=== PATIENT | male | born 1955 | race African-American/Black ===

== ENCOUNTER 2021-08-07 12:28 | Emergency (ER) | payer SELFPAY ==
[~2021-08-07] VITALS: Ht 188 cm; Wt 101.0 kg
[2021-08-07] MEDS ORDERED: HYDROCODONE/ACETAMINOPHEN 10/325MG TABLET PO ONE (13:15)
[2021-08-07] MEDS ORDERED: IBUPROFEN 800MG TABLET PO ONE (15:00)
[2021-08-07 15:20] VITALS: BP 158/78
== END 2021-08-07 17:51 | disposition home or self-care (01) ==
LOC: ER 12:45
DX: S82.299 Other fracture of shaft of unspecified tibia (principal); I10 Essential (primary) hypertension; X58.XXXA Exposure to other specified factors, initial encounter; Y93.9 Activity, unspecified; Y92.9 Unspecified place or not applicable
CPT/HCPCS: 29505; 99283

== ENCOUNTER 2021-09-28 10:42 | Emergency (ER) | payer MEDICAID ==
[~2021-09-28] VITALS: Ht 167.6 cm; Wt 100.0 kg
[2021-09-28 10:50] VITALS: BP 135/83
[2021-09-28 12:08] LABS: BASOPHILS % 0.6 % (0.0-2.0); EOSINOPHILS % 0.9 % (0.0-5.0); HEMATOCRIT. 40.6 % (42.0-52.0); HEMOGLOBIN. 13.3 g/dL (14.0-18.0); LYMPHOCYTES % 28.1 % (20.0-50.0); MEAN CORPUSCULAR HEMOGLOBIN 26.7 pg (28.0-32.0); MEAN CORPUSCULAR VOLUME 81.6 fL (80.0-94.0); MEAN PLATELET VOLUME 6.8 fl (7.4-10.4); MONOCYTES % 14.9 % (2.0-8.0); NEUTROPHILS % 55.5 % (40.0-76.0); PLATELET 423 x1000/uL (130-400); RED BLOOD CELL COUNT 4.98 mill/uL (4.7-6.1); RED CELL DISTRIBUTION WIDTH 14.8 % (11.6-14.6)
[2021-09-28 12:10] LABS: CHLORIDE 98 mEq/L (98-107)
[2021-09-28] MEDS ORDERED: PIPERACILLIN/TAZ 3.375G PREMIX 50 ML IV ONE (13:15)
[2021-09-28] MEDS ORDERED: VANCOMYCIN 1G PREMIX 200 ML IV ONE (13:15)
[2021-09-28 16:22] LABS: CLARITY URINE CLEAR (CLEAR); COLOR URINE YELLOW (YELLOW); KETONES URINE NEGATIVE (NEGATIVE); LEUKOCYTE ESTERASE URINE NEGATIVE (NEGATIVE); NITRITE URINE NEGATIVE (NEGATIVE); OCCULT BLOOD URINE NEGATIVE (NEGATIVE); PROTEIN URINE NEGATIVE (NEGATIVE); UROBILINOGEN URINE 0.2 E.U./dL (0.2-1.0)
[2021-09-28] MEDS ORDERED: GUAIFENESIN 200MG/10ML SUGAR FREE UDC PO PRN (17:30)
[2021-09-28] MEDS ORDERED: ONDANSETRON HCL 4MG/2ML INJ IV PRN (17:30)
[2021-09-28] MEDS ORDERED: DOCUSATE SODIUM 100MG CAPSULE PO PRN (17:30)
[2021-09-28] MEDS ORDERED: PIPERACILLIN/TAZOBACTAM 3.375 G in DEXTROSE 5% WATER 50 ML IV SCH (17:30)
[2021-09-28] MEDS ORDERED: ACETAMINOPHEN 325MG TABLET PO PRN (17:30)
[2021-09-28] MEDS ORDERED: HYDROCODONE/APAP 7.5/325MG 1 TAB TABLET PO PRN (17:30)
[2021-09-28] MEDS ORDERED: PIPERACILLIN/TAZOBACTAM 3.375G in DEXT 5% WATER 50ML IV SCH (23:00)
[2021-09-29] MEDS ORDERED: VANCOMYCIN 750 MG in DEXT 5% WATER 250 ML IV SCH (02:00)
[2021-09-29] MEDS ORDERED: MULTIVITAMINS,THER W-MINERALS TABLET PO SCH (09:00)
[2021-09-29] MEDS ORDERED: AMLODIPINE 10MG TABLET PO SCH (09:00)
[2021-09-29] MEDS ORDERED: ENOXAPARIN 30MG/0.3ML SYR SUBCUT SCH (09:00)
== END 2021-09-28 17:28 | disposition home or self-care (01) ==
LOC: ER 10:42 → EDBEDREQ 16:08 → EDBEDREQTM 16:08 → ER 17:28 → ENRESERV 18:37 → CANBEDREQ 20:18
DX: L03.116 Cellulitis of left lower limb (principal); B99.9 Unspecified infectious disease
CPT/HCPCS: 36415; 73590; 73610; 73630; 80053; 81003; 83605; 85025; 87040; 87086; 96365; 96368; 99284; J2543; J3370; J7060

== ENCOUNTER 2023-08-09 11:06 | Emergency (ER) | payer MEDICAID ==
[2023-08-09] MEDS ORDERED: CEPH500T MT (12:38)
[2023-08-09] MEDS ORDERED: SULF1TAB48 MT (12:39)
[2023-08-09] MEDS: CEFTRIAXONE SODIUM 1G VIAL IM ONE (12:45)
[2023-08-09 13:20] VITALS: BP 147/98; PULSE 85; RESP 16; TEMP 98
== END 2023-08-09 13:20 | disposition home or self-care (01) ==
LOC: ER 11:06
DX: L02.212 Cutaneous abscess of back [any part, except buttock and flank] (principal); I10 Essential (primary) hypertension
CPT/HCPCS: 99283; 96372; J0696